=== PATIENT | female | born 1980 | race Caucasian/White ===

== ENCOUNTER 2019-05-09 04:53 | Emergency (ER) | payer OTHER ==
[~2019-05-09] VITALS: Ht 175.3 cm; Wt 63.6 kg
[2019-05-09 05:01] VITALS: Ht 175.3 cm; Wt 63.6 kg
[2019-05-09 07:03] LABS: CALCIUM 8.6 mg/dL (8.5-10.1); CARBON DIOXIDE 28.7 mmol/L (21-32); CHLORIDE SERUM 104 mmol/L (98-107); CREATININE SERUM 0.8 mg/dL (0.6-1.0); GFR1 > 60 mL/min; GLUCOSE SERUM 91 mg/dL (74-106); POTASSIUM SERUM 4.2 mmol/L (3.5-5.1); SODIUM SERUM 140 mmol/L (136-145)
[2019-05-09 07:16] LABS: ALBUMIN 3.6 g/dL (3.4-5.0); ALKALINE PHOSPHATASE 70 U/L (46-116); ALT/SGPT 60 U/L (14-59); AST/SGOT 39 U/L (15-37); BILIRUBIN TOTAL 0.5 mg/dL (0.20-1.00); CHOLESTEROL 136 mg/dL (<200); HDL CHOLESTEROL 46 mg/dL (40-60); LIPASE 103 IU/L (73-393); T4(THYROXINE) 9.8 ug/dL (4.7-13.3); TOTAL PROTEIN, SERUM 7.4 g/dL (6.4-8.2)
[2019-05-09 07:20] LABS: microscopic required? NO
[2019-05-09 08:22] LABS: PLATELET COUNT 363 x10^3mcL (130-400); RED CELL DISTRIBUTION WIDTH 13.4 % (11.5-14.5)
[2019-05-09 08:29] LABS: urine erythrocyte NEGATIVE (NEGATIVE)
[2019-05-09 08:37] LABS: AMPHETAMINE QUAL UR POSITIVE (See below)
[2019-05-09 09:24] VITALS: BP 126/76
== END 2019-05-09 09:24 | disposition home or self-care (01) ==
LOC: ED 04:53
PROVIDERS: Emergency Medicine
DX: J98.01 Acute bronchospasm (principal); F15.10 Other stimulant abuse, uncomplicated; F17.200 Nicotine dependence, unspecified, uncomplicated
CPT/HCPCS: 36415; J2930; J7613; J7644; Q0092